=== PATIENT | female | born 1950 | race Caucasian/White ===

== ENCOUNTER 2017-09-27 13:30 | Emergency (ER) | payer MEDICARE, OTHER ==
[~2017-09-27] VITALS: Ht 154.9 cm; Wt 41.6 kg
[~2017-09-27 13:30] MED LIST: ALBU8.5H8 IH; CYCL-1 PO; ESCI20TA PO; MORP15TA PO; NORT25CA5 PO; OMEP20CA10 PO; ONDA4TAB6 PO; TOPI50TA PO; TRAZ-143 PO
[2017-09-27] MEDS ORDERED: morphine IR (immed. release) 30mg tablet PO STA (15:15)
[2017-09-27] MEDS ORDERED: MORP15TA PO (16:09)
[2017-09-27 16:41] VITALS: BP 105/78
== END 2017-09-27 16:46 | disposition home or self-care (01) ==
LOC: ER 13:30
DX: G89.29 Other chronic pain (principal); M54.5 Low back pain; Z90.710 Acquired absence of both cervix and uterus; Z88.5 Allergy status to narcotic agent; Z88.6 Allergy status to analgesic agent; Z79.899 Other long term (current) drug therapy
CPT/HCPCS: 72100; 99284

== ENCOUNTER 2018-06-02 06:43 | Day surgery (SDC) | payer MEDICARE, OTHER ==
[2018-06-02] VITALS (15 sets, daily range): BP systolic 80–119; BP diastolic 47–77
[~2018-06-02] VITALS: Ht 154.9 cm; Wt 44.5 kg
[~2018-06-02 06:43] MED LIST changes: -TRAZ-143 PO; +TRAZ-218 PO
[2018-06-02] MEDS ORDERED: normal saline 1000ml 1,000 ML IV PRN (07:15)
[2018-06-02] MEDS ORDERED: KETO10TA2 PO (07:41)
[2018-06-02] MEDS ORDERED: PROM25TA14 PO (07:41)
[2018-06-02] MEDS ORDERED: AMIT-106 PO (07:41)
[2018-06-02] MEDS ORDERED: CALC-1197 PO (07:41)
[2018-06-02] MEDS ORDERED: POTA-82 PO (07:41)
[2018-06-02] MEDS ORDERED: PANT20TA3 PO (07:41)
[2018-06-02] MEDS ORDERED: BISM262T15 PO (07:41)
[2018-06-02 08:26] LABS: ALBUMIN 3.3 G/DL (3.4-5.0); ANION GAP 10 (8-16); BASOPHILS # (AUTO) 0.1 X10'3 (0-0.2); BASOPHILS % (AUTO) 1.9 % (0-1); BLOOD UREA NITROGEN 11 MG/DL (7-18); BUN/CREATININE RATIO 10.6 (6.6-38.0); CALCIUM 8.2 MG/DL (8.5-10.1); CHLORIDE 108 MMOL/L (99-107); CREATININE 1.04 MG/DL (0.40-0.90); EOSINOPHILS # (AUTO) 0.1 X10'3 (0-0.9); EOSINOPHILS % (AUTO) 3.4 % (0-6); GLUCOSE 76 MG/DL (70-104); LYMPHOCYTES # (AUTO) 1.4 X10'3 (1.1-4.8); LYMPHOCYTES % (AUTO) 37.2 % (21-51); MEAN CORPUSCULAR HEMOGLOBIN 32.5 PG (27.0-31.0); MEAN CORPUSCULAR VOLUME 95.5 FL (78-98); MEAN PLATELET VOLUME 9.1 FL (7.4-10.4); MONOCYTES # (AUTO) 0.5 X10'3 (0-0.9); MONOCYTES % (AUTO) 13.1 % (2-12); NEUTROPHILS # (AUTO) 1.6 X10'3 (1.8-7.7); NEUTROPHILS % (AUTO) 44.4 % (42-75); POTASSIUM 3.9 MMOL/L (3.5-5.1); PRE OP HEMATOCRIT 38.2 % (35.0-45.0); PRE OP PLATELET COUNT 168 X10'3 (140-440); RED CELL DISTRIBUTION WIDTH 13.5 % (11.5-14.5); SODIUM 144 MMOL/L (135-145); TOTAL CARBON DIOXIDE 25.7 MMOL/L (24-32); eGFR 52 ML/MIN
[2018-06-02 08:27] LABS: PROTHROMBIN TIME 10.2 SECONDS (9.0-12.0)
[2018-06-02] MEDS ORDERED: pneumococcal 23-VAL P-sac vacc 25 mcg/0.5ml vial IMVAC ONE (08:35)
[2018-06-02] MEDS ORDERED: midazolam 2 mg/2 ml injection ONE (08:47)
[2018-06-02] MEDS ORDERED: fentaNYL/PF 50MCG/1 ML 2ML syringe ONE (08:47)
[2018-06-02] MEDS ORDERED: midazolam 2 mg/2 ml injection IV PRN (08:55)
[2018-06-02] MEDS ORDERED: fentaNYL/PF 50MCG/1 ML 2ML syringe IV PRN (08:55)
[2018-06-02] MEDS ORDERED: iohexol 300mg/ml 100ml inj. ONE (09:07)
== END 2018-06-02 12:00 | disposition home or self-care (01) ==
LOC: SSTAY O 06:43 → EDSTATUS 08:30 → SSTAY O 12:00
PROVIDERS: ATTEND Radiology Diagnostic Radiology
DX: M60.88 Other myositis, other site (principal); G89.29 Other chronic pain; K21.9 Gastro-esophageal reflux disease without esophagitis; F17.210 Nicotine dependence, cigarettes, uncomplicated; F32.9 Major depressive disorder, single episode, unspecified; Z23 Encounter for immunization; Z90.710 Acquired absence of both cervix and uterus; Z88.5 Allergy status to narcotic agent; Z88.6 Allergy status to analgesic agent; Z88.1 Allergy status to other antibiotic agents; Z79.891 Long term (current) use of opiate analgesic; Z98.890 Other specified postprocedural states; Z79.899 Other long term (current) drug therapy
CPT/HCPCS: 10022; 36415; 77012; 80048; 85025; 85610; 87070; 90732; 99152; 99153; J2250; J3010; J7030; Q9967; 20206; 88173

== ENCOUNTER 2019-01-15 11:15 | Emergency (ER) | payer MEDICARE, OTHER ==
[~2019-01-15] VITALS: Ht 154.9 cm; Wt 45.0 kg
[~2019-01-15 11:15] MED LIST changes: -ALBU8.5H8 IH; +AMIT-106 PO; +BISM262T15 PO; +CALC-1197 PO; -CYCL-1 PO; +KETO10TA2 PO; -NORT25CA5 PO; -OMEP20CA10 PO; -ONDA4TAB6 PO; +PANT20TA3 PO; +POTA-82 PO; +PROM25TA14 PO; -TRAZ-218 PO; +TRAZ-251 PO
[2019-01-15 11:47] LABS: HEMOGLOBIN 14.3 g/dl (12.0-16.0); MEAN CORPUSCULAR HGB CONC 32.9 g/dL (33.0-36.5)
[2019-01-15 11:48] LABS: HEMATOCRIT 43.6 % (35.0-45.0); MEAN CORPUSCULAR HEMOGLOBIN 30.5 PG (27.0-31.0); MEAN CORPUSCULAR VOLUME 92.6 FL (78-98); MEAN PLATELET VOLUME 9.2 FL (7.4-10.4); PLATELET COUNT 230 X10'3 (140-440); RED CELL DISTRIBUTION WIDTH 16.2 % (11.5-14.5); WHITE BLOOD COUNT 5.2 X10'3 (4.5-11.0)
[2019-01-15 11:58] LABS: ALANINE AMINOTRANSFERASE 26 U/L (12-78); ALBUMIN 4.2 G/DL (3.4-5.0); ALBUMIN/GLOBULIN RATIO 1.1 (1.1-1.5); ALKALINE PHOSPHATASE 83 IU/L (46-116); ANION GAP 11 (8-16); ASPARTATE AMINO TRANSFERASE 18 U/L (10-37); BILIRUBIN,TOTAL 0.2 MG/DL (0.1-1.0); BLOOD UREA NITROGEN 10 MG/DL (7-18); BUN/CREATININE RATIO 10.2 (6.6-38.0); CALCIUM 9.5 MG/DL (8.5-10.1); CHLORIDE 107 MMOL/L (99-107); CREATININE 0.98 MG/DL (0.40-0.90); GLUCOSE 87 MG/DL (70-104); POTASSIUM 4.4 MMOL/L (3.5-5.1); SODIUM 140 MMOL/L (135-145); TOTAL CARBON DIOXIDE 22.3 MMOL/L (24-32); eGFR 56 ML/MIN
[2019-01-15 12:01] LABS: PARTIAL THROMBOPLASTIN TIME 25 SECONDS (22-32)
[2019-01-15 12:12] LABS: TOTAL CELLS COUNTED 100
[2019-01-15 12:15] LABS: ACANTHOCYTES FEW; ANISOCYTOSIS 1+; PLATELET ESTIMATE NORMAL; SCHISTOCYTES FEW; TOXIC VACUOLATION FEW
[2019-01-15] MEDS ORDERED: LIDOcaine Viscous 15ml cup MM PRN (13:25)
[2019-01-15] MEDS ORDERED: mag hydrox/Alum hydrox/simeth 30ml oral suspension PO ONE (13:25)
[2019-01-15] MEDS ORDERED: CALC300T4 PO (15:17)
[2019-01-15 16:06] VITALS: BP 121/88
== END 2019-01-15 16:08 | disposition home or self-care (01) ==
LOC: ER 11:16
DX: R07.89 Other chest pain (principal); R12 Heartburn; R06.02 Shortness of breath; G89.29 Other chronic pain; Z90.710 Acquired absence of both cervix and uterus; Z88.5 Allergy status to narcotic agent; Z88.6 Allergy status to analgesic agent; Z79.899 Other long term (current) drug therapy
CPT/HCPCS: 36415; 71045; 80053; 84484; 85025; 85610; 85730; 93005; 99284

== ENCOUNTER 2019-04-27 12:51 | Emergency (ER) | payer MEDICARE, OTHER ==
[~2019-04-27] VITALS: Ht 154.9 cm; Wt 45.5 kg
[~2019-04-27 12:51] MED LIST changes: -AMIT-106 PO; +AMIT25TA9 PO
[2019-04-27 13:57] LABS: HEMOGLOBIN 11.2 g/dl (12.0-16.0); MEAN CORPUSCULAR HGB CONC 33.1 g/dL (33.0-36.5); RED BLOOD COUNT 3.66 X10'6 (4.20-5.60); WHITE BLOOD COUNT 3.3 X10'3 (4.5-11.0)
[2019-04-27 13:59] LABS: HEMATOCRIT 33.9 % (35.0-45.0); MEAN CORPUSCULAR HEMOGLOBIN 30.6 PG (27.0-31.0); MEAN CORPUSCULAR VOLUME 92.6 FL (78-98); MEAN PLATELET VOLUME 9.1 FL (7.4-10.4); PLATELET COUNT 162 X10'3 (140-440); RED CELL DISTRIBUTION WIDTH 14.7 % (11.5-14.5)
[2019-04-27 14:14] LABS: ALANINE AMINOTRANSFERASE 21 U/L (12-78); ALBUMIN 3.7 G/DL (3.4-5.0); ALBUMIN/GLOBULIN RATIO 1.1 (1.1-1.5); ALKALINE PHOSPHATASE 81 IU/L (46-116); ANION GAP 6 (8-16); ASPARTATE AMINO TRANSFERASE 21 U/L (10-37); BILIRUBIN,TOTAL 0.2 MG/DL (0.1-1.0); BLOOD UREA NITROGEN 6 MG/DL (7-18); BUN/CREATININE RATIO 5.4 (6.6-38.0); CALCIUM 8.7 MG/DL (8.5-10.1); CHLORIDE 109 MMOL/L (99-107); CREATININE 1.11 MG/DL (0.40-0.90); GLUCOSE 69 MG/DL (70-104); POTASSIUM 3.8 MMOL/L (3.5-5.1); SODIUM 143 MMOL/L (135-145); TOTAL CARBON DIOXIDE 27.6 MMOL/L (24-32); TOTAL PROTEIN 7.1 G/DL (6.4-8.2); eGFR 49 ML/MIN
[2019-04-27 14:15] LABS: PARTIAL THROMBOPLASTIN TIME 27 SECONDS (22-32)
[2019-04-27 14:22] LABS: CLARITY,URINE CLEAR (Clear); COLOR,URINE YELLOW (Yellow); GLUCOSE, URINE NEGATIVE (Neg); KETONES,URINE NEGATIVE (Neg); LEUKOCYTE ESTERASE ,URINE NEGATIVE (Neg); NITRITES, URINE NEGATIVE (Neg); OCCULT BLOOD,URINE NEGATIVE (Neg); PH,URINE 5.5 (4.8-8.0); PROTEIN,URINE NEGATIVE (Neg); UROBILINOGEN,URINE 0.2 E.U/dL (0.2-1.0)
[2019-04-27 14:27] LABS: UA COLLECTION TYPE CLN CATCH MIDSTREAM
[2019-04-27 14:31] LABS: PLATELET ESTIMATE NORMAL; TOTAL CELLS COUNTED 100
[2019-04-27] MEDS ORDERED: ondansetron/PF 4mg/2ml inj IV ONE (15:00)
[2019-04-27] MEDS ORDERED: normal saline 1000ML IV soln IVB ONE (15:00)
[2019-04-27] MEDS: morphine 4 MG/ML inj SYRINge IV PRN ×2 (15:24→16:38)
[2019-04-27] MEDS ORDERED: iohexol 300mg/ml 100ml inj. ONE (15:27)
[2019-04-27 16:29] VITALS: BP 116/73
[2019-04-27] MEDS ORDERED: dexamethasone sod phosphate 10mg/ml inj IV STA (16:31)
[2019-04-27] MEDS ORDERED: ketorolac trometh. 30mg/ml inj. IV ONE (16:35)
== END 2019-04-27 16:46 | disposition home or self-care (01) ==
LOC: ER 12:52
DX: M54.41 Lumbago with sciatica, right side (principal); M51.26 Other intervertebral disc displacement, lumbar region; G89.29 Other chronic pain; Z90.710 Acquired absence of both cervix and uterus; Z88.6 Allergy status to analgesic agent; Z88.5 Allergy status to narcotic agent; Z79.899 Other long term (current) drug therapy
CPT/HCPCS: 36415; 72132; 74177; 80053; 81003; 83605; 84145; 85025; 85610; 85730; 87040; 96374; 96375; 96376; 99284; J1100; J1885; J2270; J2405; J7030; Q9967; 96361

== ENCOUNTER 2019-08-20 15:01 | Emergency (ER) | payer MEDICARE, OTHER ==
[~2019-08-20] VITALS: Ht 154.9 cm; Wt 45.5 kg
[2019-08-20 16:17] LABS: BASOPHILS # (AUTO) 0.1 X10'3 (0-0.2); EOSINOPHILS % (AUTO) 0.8 % (0-6); MONOCYTES # (AUTO) 0.5 X10'3 (0-0.9); WHITE BLOOD COUNT 5.4 X10'3 (4.5-11.0)
[2019-08-20 16:19] LABS: HEMATOCRIT 40.7 % (35.0-45.0); HEMOGLOBIN 13.6 g/dl (12.0-16.0); LYMPHOCYTES # (AUTO) 1.7 X10'3 (1.1-4.8); LYMPHOCYTES % (AUTO) 31.1 % (21-51); MEAN CORPUSCULAR HEMOGLOBIN 29.9 PG (27.0-31.0); MEAN CORPUSCULAR HGB CONC 33.4 g/dL (33.0-36.5); MEAN CORPUSCULAR VOLUME 89.3 FL (78-98); MEAN PLATELET VOLUME 9.3 FL (7.4-10.4); MONOCYTES % (AUTO) 8.9 % (2-12); NEUTROPHILS # (AUTO) 3.1 X10'3 (1.8-7.7); NEUTROPHILS % (AUTO) 57.2 % (42-75); PLATELET COUNT 220 X10'3 (140-440); RED BLOOD COUNT 4.55 X10'6 (4.20-5.60); RED CELL DISTRIBUTION WIDTH 16.2 % (11.5-14.5)
[2019-08-20 16:19] LABS: CLARITY,URINE CLEAR (Clear); COLOR,URINE YELLOW (Yellow); GLUCOSE, URINE NEGATIVE (Neg); KETONES,URINE NEGATIVE (Neg); LEUKOCYTE ESTERASE ,URINE NEGATIVE (Neg); NITRITES, URINE NEGATIVE (Neg); OCCULT BLOOD,URINE NEGATIVE (Neg); PROTEIN,URINE NEGATIVE (Neg); UA COLLECTION TYPE CLN CATCH MIDSTREAM; UROBILINOGEN,URINE 0.2 E.U/dL (0.2-1.0)
[2019-08-20] MEDS ORDERED: normal saline 1000ML IV soln IVB ONE (16:30)
[2019-08-20] MEDS ORDERED: pantoprazole 40 MG vial IV ONE (16:30)
[2019-08-20] MEDS ORDERED: ondansetron/PF 4mg/2ml inj IV ONE (16:30)
[2019-08-20 16:31] LABS: LARGE PLATELETS FEW; PLATELET ESTIMATE NORMAL
[2019-08-20 16:34] LABS: ALANINE AMINOTRANSFERASE 20 U/L (12-78); ALBUMIN 3.9 G/DL (3.4-5.0); ALKALINE PHOSPHATASE 78 IU/L (46-116); ANION GAP 11 (8-16); ASPARTATE AMINO TRANSFERASE 15 U/L (10-37); BILIRUBIN,TOTAL 0.3 MG/DL (0.1-1.0); BLOOD UREA NITROGEN 7 MG/DL (7-18); BUN/CREATININE RATIO 6.5 (6.6-38.0); CALCIUM 8.9 MG/DL (8.5-10.1); CHLORIDE 108 MMOL/L (99-107); CREATININE 1.08 MG/DL (0.40-0.90); GLUCOSE 90 MG/DL (70-104); LIPASE 88 U/L (73-393); POTASSIUM 3.7 MMOL/L (3.5-5.1); SODIUM 143 MMOL/L (135-145); TOTAL CARBON DIOXIDE 24.3 MMOL/L (24-32); TOTAL PROTEIN 7.8 G/DL (6.4-8.2); eGFR 50 ML/MIN
[2019-08-20] MEDS ORDERED: sulfamethoxazole/trimethoprim DS (800/160mg) tablet PO ONE (18:00)
[2019-08-20] MEDS ORDERED: metroNIDAZOLE 500mg tablet PO STA (18:00)
[2019-08-20] MEDS ORDERED: NORT10CA2 PO (18:06)
[2019-08-20] MEDS ORDERED: METR-159 PO (18:43)
[2019-08-20] MEDS ORDERED: SULF1TAB49 PO (18:43)
[2019-08-20 19:03] VITALS: BP 112/59
== END 2019-08-20 19:06 | disposition home or self-care (01) ==
LOC: ER 15:02
DX: A09 Infectious gastroenteritis and colitis, unspecified (principal); G89.29 Other chronic pain; Z90.710 Acquired absence of both cervix and uterus; Z88.5 Allergy status to narcotic agent; Z88.6 Allergy status to analgesic agent; Z79.899 Other long term (current) drug therapy
CPT/HCPCS: 36415; 71045; 74176; 80053; 81003; 83690; 85025; 96361; 96374; 96375; 99284; C9113; J2405; J7030; J3490

== ENCOUNTER 2019-09-07 16:10 | Emergency (ER) | payer MEDICARE, OTHER ==
[~2019-09-07] VITALS: Ht 154.9 cm; Wt 41.7 kg
[~2019-09-07 16:10] MED LIST changes: -AMIT25TA9 PO; -BISM262T15 PO; -CALC-1197 PO; +NORT10CA2 PO
[2019-09-07 19:18] LABS: BASOPHILS # (AUTO) 0.1 X10'3 (0-0.2); BASOPHILS % (AUTO) 1.6 % (0-1); EOSINOPHILS % (AUTO) 0.6 % (0-6); HEMOGLOBIN 14.1 g/dl (12.0-16.0); LYMPHOCYTES # (AUTO) 1.3 X10'3 (1.1-4.8); MEAN CORPUSCULAR HEMOGLOBIN 30.2 PG (27.0-31.0); MEAN CORPUSCULAR HGB CONC 33.6 g/dL (33.0-36.5); MEAN PLATELET VOLUME 10.1 FL (7.4-10.4); MONOCYTES # (AUTO) 0.8 X10'3 (0-0.9); MONOCYTES % (AUTO) 10.4 % (2-12); NEUTROPHILS # (AUTO) 5.1 X10'3 (1.8-7.7); NEUTROPHILS % (AUTO) 69.4 % (42-75); PLATELET COUNT 200 X10'3 (140-440); RED BLOOD COUNT 4.66 X10'6 (4.20-5.60); RED CELL DISTRIBUTION WIDTH 15.3 % (11.5-14.5); WHITE BLOOD COUNT 7.3 X10'3 (4.5-11.0)
[2019-09-07 19:28] LABS: ALANINE AMINOTRANSFERASE 20 U/L (12-78); ALBUMIN 3.6 G/DL (3.4-5.0); ALBUMIN/GLOBULIN RATIO 0.9 (1.1-1.5); ALKALINE PHOSPHATASE 64 IU/L (46-116); ANION GAP 15 (8-16); ASPARTATE AMINO TRANSFERASE 17 U/L (10-37); BILIRUBIN,TOTAL 0.4 MG/DL (0.1-1.0); BLOOD UREA NITROGEN 12 MG/DL (7-18); BUN/CREATININE RATIO 11.4 (6.6-38.0); CALCIUM 8.9 MG/DL (8.5-10.1); CHLORIDE 100 MMOL/L (99-107); CREATININE 1.05 MG/DL (0.40-0.90); GLUCOSE 67 MG/DL (70-104); SODIUM 139 MMOL/L (135-145); TOTAL CARBON DIOXIDE 24.1 MMOL/L (24-32); TOTAL PROTEIN 7.5 G/DL (6.4-8.2); eGFR 52 ML/MIN
[2019-09-07 19:32] LABS: POTASSIUM 2.4 MMOL/L (3.5-5.1)
[2019-09-07] MEDS ORDERED: potassium chloride 10mEq ER tablet PO STA (20:01)
[2019-09-07] MEDS ORDERED: potassium Cl 10 mEq/100mL bag IV ONE (20:05)
[2019-09-07] MEDS ORDERED: normal saline 1000ML IV soln IVB ONE (20:05)
[2019-09-07] MEDS ORDERED: pantoprazole 40mg Tablet.DR PO STA (21:21)
[2019-09-07] MEDS ORDERED: dicyclomine 10 MG capsule PO ONE (21:25)
[2019-09-07] MEDS ORDERED: loperamide 2mg capsule PO ONE (21:25)
--- NOTE | 2019-09-07 21:33 | NUR ---
pt resting peacefulling on right side with 2 bus infusing to the right ac patent plan of care updated will continue to reassess
[2019-09-07] MEDS ORDERED: proCHLORperazine 10 MG/2 ml inj IV ONE (22:40)
[2019-09-07] MEDS ORDERED: diphenhydrAMINE 25mg capsule PO ONE (22:40)
--- NOTE | 2019-09-07 23:24 | NUR ---
pt asked to wait about 15 min to see if the compazine took effect before she takes the benadryl will continue to reassess and monitor
--- NOTE | 2019-09-07 23:40 | NUR ---
alcon hylton to have sips for po william ellis aware.
[2019-09-08] MEDS ORDERED: MAG355OR18 PO (00:08)
[2019-09-08] MEDS ORDERED: DIPH25CA83 PO (00:08)
[2019-09-08] MEDS ORDERED: PROC-8 PO (00:08)
[2019-09-08] MEDS ORDERED: PANT20TA3 PO (00:08)
[2019-09-08 00:41] VITALS: BP 116/71
== END 2019-09-08 00:43 | disposition home or self-care (01) ==
LOC: ER 16:10
DX: E87.6 Hypokalemia (principal); R19.7 Diarrhea, unspecified; R11.2 Nausea with vomiting, unspecified; R10.84 Generalized abdominal pain; Z90.710 Acquired absence of both cervix and uterus; G89.29 Other chronic pain; Z88.6 Allergy status to analgesic agent; Z88.5 Allergy status to narcotic agent; Z79.899 Other long term (current) drug therapy
CPT/HCPCS: 36415; 80053; 85025; 96365; 96375; 99284; J0780; J3480; J7030; Q0163

== ENCOUNTER 2020-03-16 11:33 | Emergency (ER) | payer MEDICARE, OTHER ==
[~2020-03-16] VITALS: Ht 154.9 cm; Wt 41.0 kg
[~2020-03-16 11:33] MED LIST changes: +DIPH25CA83 PO; -KETO10TA2 PO; -POTA-82 PO; +PROC-8 PO; -PROM25TA14 PO
[2020-03-16] MEDS ORDERED: morphine 4 MG/ML inj SYRINge IM ONE (12:35)
--- NOTE | 2020-03-16 12:49 | NUR ---
pt medicated as per md orders,primary nurse on break .pt to x ray rgt now.
[2020-03-16] MEDS ORDERED: OXYC-150 PO (14:07)
[2020-03-16 14:12] VITALS: BP 100/61
== END 2020-03-16 14:14 | disposition home or self-care (01) ==
LOC: ER 11:33
DX: S30.0XXA Contusion of lower back and pelvis, initial encounter (principal); S39.012A Strain of muscle, fascia and tendon of lower back, initial encounter; G89.29 Other chronic pain; Z90.710 Acquired absence of both cervix and uterus; F17.200 Nicotine dependence, unspecified, uncomplicated; Z88.6 Allergy status to analgesic agent; Z88.5 Allergy status to narcotic agent; Z79.899 Other long term (current) drug therapy; W19.XXXA Unspecified fall, initial encounter; Y93.89 Activity, other specified; Y92.89 Other specified places as the place of occurrence of the external cause; Y99.8 Other external cause status
CPT/HCPCS: 72100; 73502; 96372; 99284; J2270

== ENCOUNTER 2024-12-28 10:20 | Outpatient (CLI) | payer MEDICARE, OTHER ==
[~2024-12-28 10:20] MED LIST changes: +IBUP-1985 PO; +LIDO700A32 TOP; +OXYC-150 PO; +PANT20TA18 PO; -PANT20TA3 PO
--- NOTE | 2024-12-28 18:32 | RADIOLOGY REPORT ---
PROCEDURE: MR MRI LUMBAR SPINE INDICATION: SPINAL STENOSIS, LUMBAR REGION WITHOUT NEUROGENIC Exam Date: 12/28/2024 11:06 AM COMPARISON: None TECHNIQUE: MRI lumbar spine without intravenous contrast. FINDINGS: Levoscoliosis. Grade 1 anterolisthesis of L5 on S1. The vertebral body heights and marrow signal are within normal limits. There are degenerative endplate changes including modic endplate changes wit h anterior and lateral osteophytes throughout the lumbar spine. The conus medullaris appears to termi michaela within normal limits. The visualized retroperitoneal and paraspinal soft tissues are unremarkab le. The following axial levels are detailed below: T12-L1: Unremarkable. L1-L2: There is a mild circumferential disc bulge. No significant central canal or neuroforaminal s tenosis. L2-L3: There is a moderate circumferential disc bulge complicated by facet arthropathy associated w ith mild to moderate right neuroforaminal stenosis. No significant central canal stenosis. L3-L4: There is a moderate circumferential disc bulge complicated by facet arthropathy associated w ith mild bilateral neuroforaminal stenosis. No significant central canal stenosis. L4-L5: There is a moderate circumferential disc bulge complicated by facet arthropathy associated w ith moderate left neuroforaminal stenosis. No significant central canal stenosis. L5-S1: There is a moderate circumferential disc bulge complicated by facet arthropathy associated wi th mild to moderate left neuroforaminal stenosis. No significant central canal stenosis. IMPRESSION: 1. Rotoscoliosis with associated multilevel degenerative disease. No significant central canal steno sis. Neural foraminal stenosis as above. HS:Y
--- NOTE | 2024-12-28 18:33 | RADIOLOGY REPORT ---
PROCEDURE: MR MRI THORACIC SPINE INDICATION: SPINAL STENOSIS, LUMBAR REGION WITHOUT NEUROGENIC Exam Date: 12/28/2024 10:33 AM COMPARISON: None TECHNIQUE: MRI thoracic spine without intravenous contrast. FINDINGS: The thoracic alignment is intact. The vertebral body heights are intact. There are degenerative end plate changes with anterior and lateral osteophytes mid to lower thoracic levels. The thoracic cord signal and contour appear intact. There is no significant posterior disc disease, central canal or n eural foraminal narrowing. The visualized paraspinal soft tissues are otherwise unremarkable. IMPRESSION: 1. Mild degenerative disease. No significant posterior disc disease, central canal or neural foramina l narrowing. 2. Intact thoracic cord signal. No evidence of cord compression. HS:Y
== END 2024-12-28 23:59 | disposition home or self-care (01) ==
LOC: MRI02 10:20
PROVIDERS: ATTEND Family Medicine
DX: M51.17 Intervertebral disc disorders with radiculopathy, lumbosacral region (principal); M54.9 Dorsalgia, unspecified; M47.814 Spondylosis without myelopathy or radiculopathy, thoracic region; M47.27 Other spondylosis with radiculopathy, lumbosacral region; M25.78 Osteophyte, vertebrae; M48.07 Spinal stenosis, lumbosacral region
CPT/HCPCS: 72146; 72148

== ENCOUNTER 2025-06-24 08:34 | Outpatient (CLI) | payer MEDICARE, OTHER ==
[~2025-06-24 08:34] MED LIST changes: -IBUP-1985 PO; +IBUP600T52 PO; +LIDO-52 TOP; -LIDO700A32 TOP
--- NOTE | 2025-06-24 10:02 | RADIOLOGY REPORT ---
INDICATION: EPIGASTRIC PAIN TECHNIQUE: Multiple real-time sonographic images of the abdomen were obtained. COMPARISON: None FINDINGS: Liver is homogenous in echogenicity. The liver measures 12 cm. No intrahepatic biliary ductal dilatation is noted. The gallbladder wall measures 0.2 cm and is unremarkable. Gallbladder polyp is present measuring 0.4 cm.. No pericholecystic fluid or edema. The common duct measures 0.2 cm and is unremarkable. The right kidney measures 9.6 cm. No hydronephrosis. The left kidney measures 8.9 cm. No hydronephrosis. The spleen measures 9.1 cm, within normal limits. The echogenicity is within normal limits. The pancreas is not well visualized due to obscuration from bowel gas. The visualized portions of the IVC and aorta are grossly unremarkable. IMPRESSION: Gallbladder polyp is present measuring 0.4 cm. FOLLOW UP RECOMMENDATIONS: Low-risk polyps (pedunculated with a thick or wide stalk, or sessile): < 6 mm: no follow-up 7-9 mm follow-up ultrasound at 12 months 10-14 mm: follow-up ultrasound at 6, 12, 24, and 36 months vs surgical consult > 15 mm: surgical consult Connie Almonte, Alicia C, Elizabeth J et al. Management of Incidentally Detected Gallbladder Polyps: Society of Radiologists in Ultrasound Consensus Conference Recommendations. Radiology. 2021;:[id number].
--- NOTE | 2025-06-24 10:06 | RADIOLOGY REPORT ---
[facility] INDICATION: ACUTE MIDLINE THORACIC BACK PAIN COMPARISON: MR MRI LUMBAR SPINE on DOS: 12/28/24, MR MRI THORACIC SPINE on DOS: 12/28/24, LUMBAR SPINE LIMITED on DOS: 03/16/20 TECHNIQUE:2 views of the thoracic spine were obtained. FINDINGS: Diffuse osteopenia. Moderate multilevel degenerative disc disease of the thoracic spine. No acute fracture, vertebral compression deformity or aggressive osseous lesions. The imaged thorax and abdomen are grossly unremarkable. IMPRESSION: No acute fracture.
--- NOTE | 2025-06-24 11:09 | RADIOLOGY REPORT ---
CLINICAL HISTORY: HEADACHE TECHNIQUE: Routine multiplanar imaging of the brain was performed without gadolinium contrast. COMPARISON: None FINDINGS: There is no abnormal restricted diffusion to suggest acute infarction. There are a few punctate foci of T2 hyperintensity within the white matter both cerebral hemispheres, of doubtful clinical significance. There is no evidence for acute ischemic changes, mass, mass effect, or extra- axial fluid collection. There is no hydrocephalus or midline shift. The cerebral sulci and subarachnoid cisterns are not effaced. The imaged paranasal sinuses are clear. There has been bilateral cataract extraction. The midline structures, including the corpus callosum, are unremarkable. The intracranial flow voids are maintained. IMPRESSION: No acute intracranial abnormality seen. No evidence for acute infarct. No significant white matter disease. Bilateral cataract extraction.
== END 2025-06-24 23:59 | disposition home or self-care (01) ==
LOC: RAD 08:34
PROVIDERS: ATTEND Family Medicine
DX: K82.4 Cholesterolosis of gallbladder (principal); M51.34 Other intervertebral disc degeneration, thoracic region; M85.88 Other specified disorders of bone density and structure, other site; H26.9 Unspecified cataract; R51.9 Headache, unspecified; R10.13 Epigastric pain
CPT/HCPCS: 70551; 72074; 76700